=== PATIENT | male | born 1950 | race Caucasian/White ===

== ENCOUNTER 2017-04-07 22:22 | Emergency (ER) | payer MEDICARE, OTHER ==
[~2017-04-07] VITALS: Ht 185.4 cm; Wt 120.2 kg
[~2017-04-07 22:22] MED LIST: AMITRIPTYLINE100 M1 PO; AMITRIPTYLINE100 MG PO; ASPIRIN EC325 M1 PO; BACTRIM DS 8001 TAB PO; BYSTOLIC10 MG PO; FLEXERIL10 MG PO; IBU-8800 MG PO; LISINOPRIL 10MG10 MG PO; LISINOPRIL40 MG PO; LOPRESSOR 25MG.25 M1 PO; MEDROL 4MG. DOSE4 MG PO; NEURONTIN 300M300 MG PO; OMEPRAZOLE20 MG PO; PLAVIX 75MG TAB75 MG PO; PRILOSEC OTC20 MG PO; VICODIN 5/500 T1 TAB PO
--- NOTE | 2017-04-07 23:06 | Emergency Room Report ---
History of Present Illness Time Seen by [id number] Presenting Problem in Triage Pt arrived:Ambulance Stretcher Presenting Problem:HIGH BLOOD PRESSURE, RIGHT SIDED NUMBNESS, H/O CVA WHICH HAD TPA. DENIES ANY PAIN Onset of symptoms date/time:04/07/17 or onset unknown for: Treatment Prior to Arrival: CHANNEL MANAGER Provided by: Sepsis Risk Assessment: Temp: 98.5 B/P: 199/108 MAP: 138 Pulse: 90 Resp: 22 Recent fever? N Clinical Suspician of Infection? N Mental Status: 1 - Regular (Normal Baseline) Sepsis Risk:Possible Sepsis Risk Have you (or family members/close friends) recently traveled outside the [place]? N If Yes, where/when: Have you had exposure to infectious disease within the past month? N TB? Other? Specify: Source patient, RN notes reviewed, family, old records Exam Limitations no limitations Comment wm with parasthesia rt upper ext and rt lower ext anf face today at 1500 and he has htn and prev cva 2009 requiring tpa - he has no speech and no motor loss and no visual sx - no fever or rash and no trauma Cardiac Chest Pain Chest pain indicative of cardiac No Timing/Duration this afternoon Severity moderate ALLERGIES Coded Allergies: No Known Allergies (06/29/16) Home Medications Reported Medications Aspirin (Aspirin Ec) 325 MG PO DAILY Gabapentin (Neurontin 300MG) 900 MG PO QHS Omeprazole (Omeprazole 20MG) 20 MG PO DAILY Lisinopril (Lisinopril 40MG) 40 MG PO BID #60 Metoprolol Tartrate (Lopressor 25MG Tab (1/2 Of 50 MG)) 50 MG PO DAILY #30 AMITRIPTYLINE HCL (Amitriptyline Hcl) 200 MG PO NIGHTLY #60 History Medical History General CAD? No Angina: No DE: No Hypertension? Yes Hyperlipidemia? No CHF? No DVT? No PE? No COPD? Yes Asthma? No Anemia? No GERD? No Gastric ulcers? No GI Bleed? No Hernia? No Thyroid Problems? No Hypothyroidism? No CVA? Yes Seizures? No Diabetes? No Renal Insuffiency? No End Stage Renal Disease? No UTI? No Stones? No BPH? No GB Disease: No Nephritic Syndrome? No Asplenia? No Hepatitis? No Sickle Cell Disease? No Arthritis? No Migraines? No Cataracts? No Glaucoma? No MRSA? No HIV? No TB? No Anxiety? No Depression? No Cancer? No Immunization Hx DT/Tetanus 03/02/11 Surgical Hx Previous Surgery?Y BACK SURGERY X 2 Social History Smoking Hx Smoker: Current Every Day Smoker Tobacco: Yes Type Cigarettes Packs/day < 1 Pack Alcohol Alcohol: No Drugs none Review of Systems All Other Systems Reviewed and Negative Constitutional denies fever Eyes denies drainage ENT denies: ear discharge, epistaxis, throat pain. Respiratory denies cough, denies shortness of breath, denies wheezing Cardiovascular denies chest pain, denies palpitations, denies syncope Gastrointestinal denies abdominal pain, denies nausea, denies vomiting Genitourinary denies: dysuria, frequency, hesitancy, hematuria. Musculoskeletal denies back pain, denies joint pain, denies joint swelling, denies neck pain Skin denies rash Psychiatric/Neurological see HPI, denies headache, paresthesia, denies seizure, weakness Physical Exam Vital Signs Vital Signs Date Time Temp Pulse Resp B/P Pulse O2 O2 Flow FiO2 Ox Delivery Rate 04/07 2309 89 20 187/133 95 04/07 2235 98.5 90 22 199/108 97 - WBC >12,000 or <4,000 or 10% bands? 2 or more SIRS Criteria Met? B/P:187/133 MAP:138 Creatinine >2.0? UA output<0.5ml/kg/hr for 2 hrs? Platelet count >100,000? Lactate >2.0mmol/1? INR >1.2 or PTT > than 60 sec? Evidence of Organ Dysfunction? Provider documented clinical suspician of infection? N Sepsis Criteria Count: 2 Sepsis Risk: Possible Sepsis Risk General Appearance no apparent distress Eye Exam - bilateral eye PERRL, bilateral eye EOMI Ear, Nose, Throat normal ENT inspection Neck supple Respiratory Status No: respiratory distress. Lung Sounds bilateral: lungs clear. Cardiovascular regular rate/rhythm, systolic murmur, no bruit Peripheral Pulses Pulses normal Yes Gastrointestinal soft Extremities normal inspection Strength 4 Upper Ext (L), 4 Upper Ext (R), 4 Lower Ext (L), 4 Lower Ext (R) Neurologic alert, licensed occupational therapist II-XII nml as tested, sensory deficit Glascow Coma Scale Glascow Coma Scale Response Value EYE response: 4 Spontaneously 4 MOTOR response: 6 OBEYS 6 VERBAL response: 5 Oriented & Converses 5 Total 15 Reflexes Reflexes normal No Mental status normal mood/affect Skin intact Stroke Score/Tx Stroke Evaluation Initial symptoms indicative of possible stroke? Yes NIH STROKE SCORE NIH STROKE SCORE Response Value 1a.Level of Consciousness ALERT 0 1b.LOC Questions ANSWERS BOTH CORRECTLY 0 1c.LOC Commands OBEYS BOTH CORRECTLY 0 2 .Best Gaze NORMAL 0 3 .Visual NO VISUAL LOSS 0 4 .Facial Palsy NORMAL 0 5a.Motor Arm Left NO DRIFT 0 5b.Motor Arm Right NO DRIFT 0 6a.Motor Leg Left NO DRIFT 0 6b.Motor Leg Right NO DRIFT 0 7 .Limb Ataxia ABSENT 0 8 .Sensory PARTIAL LOSS 1 9 .Best Language NO APHASIA 0 10.Dysarthria NORMAL ARTICULATION 0 ED.NIH11 NO NEGLECT 0 Total 1 Treatment Consideration t-PA ordered? No Exit section? Yes Medical Decision Making LABS/Meds/Orders Pt receiving controlled substance in ED? No Results/Orders Laboratory Tests 04/07/170: Creatine Kinase Pending, CK-MB (CK-2) Rel Index Pending, CK and CKMB Interp Pending, Troponin I Pending 04/07/170: Sodium 140, Potassium 4.3, Chloride 104, Carbon Dioxide 30, BUN 22 H, Creatinine 1.2, Estimated Creat Clear 104, Estimated GFR (MDRD) 61, Glucose 85, Calcium 9.0, Total Bilirubin 0.3, AST 26, ALT 34, Alkaline Phosphatase 86, Total Protein 8.0, Albumin 3.9, Globulin 4.1 H, Albumin/Globulin Ratio 1.0 L, PT 10.7, INR 0.99, APTT 26.7, WBC 7.4, RBC 5.05, Hgb 15.9, Hct 48.3, MCV 95.5, RDW 13.5, Plt Count 210, MPV 7.9, Gran % 49.8, Gran # 3.7, Lymphocytes % 39.8, Monocytes % 7.2, Eosinophils % 2.2, Basophils % 1.0, Lymphocytes # 2.9, Monocytes # 0.5, Eosinophils # 0.2, Basophils # 0.1, PUBS MCHC 32.9, MCH 31.5 H Current Medication Orders Sig/Ana Start time Last Medication Dose Route Stop Time Status Admin Sodium Chloride 10 ML PRN PRN 04/07 2245 AC IV 04/08 2244 Orders Procedure Date/time Status DIET-NOTHING BY MOUTH 04/08 B Active PARTIAL THROMBOPLASTIN TIME 04/07 2305 Complete PROTHROMBIN TIME 04/07 2305 Complete CARDIAC ENZYMES 04/[address] HEAD W/O CONTRAST 04/07 2304 Active ELECTROCARDIOGRAM REQUEST 04/[address] HEAD REQ 04/07 2244 Active IV SALINE LOCK 04/07 2244 Active CBC WITH AUTO DIFF 04/07 2244 Complete CHEM 12 PROFILE 04/07 2244 Complete CM/EKG CM/senior payroll manager Rhythm Normal Sinus Rhythm EKG no evid. of ischemic chgs XRAY/CT/US XRAY/CT/US CT head CT interpretation by discussed w/radiologist Time results known: 2353 CT Results normal/NAD Departure Departure Time of Disposition 2347 Disposition DC/XFER from ER to [facility] Clinical Impression Primary Impression: CVA (cerebral vascular accident) Qualifiers: CVA mechanism: unspecified Qualified Code: I63.9 - Cerebral infarction, unspecified Secondary Impressions: HTN (hypertension) Qualifiers: Hypertension type: essential hypertension Qualified Code: I10 - Essential (primary) hypertension Condition STABLE Additional Instructions discussed with law team dr chapa Discharge Counseling Counseled pt/family regarding diagnosis, test results, follow up needs ED Critical Care Critical Care Yes Time spent 75-104 min Vital system(s) involved: Central Nervous System (cva) I was present at bedside for Coordinating pt's care, Interpreting EKGs/Strips , Reviewing lab results, Discussing pt condition, For re-examinations, Examining radiographs at 2354
[2017-04-07 23:24] LABS: HEMOGLOBIN 15.9 g/dL (14.1-18.0); LYMPH # 2.9 K/mm3 (0.7-4.5); LYMPH % 39.8 % (10-50)
[2017-04-08 01:21] VITALS: BP 177/104
--- NOTE | 2017-04-08 07:24 | RADIOLOGY REPORT PS360 ---
CT HEAD W/O CONTRAST HISTORY: RT SIDE NUMBNESS ORDERING PHYSICIAN: Frida Silva MD PATIENT AGE: 66 years COMPARISON: 06/29/2016 TECHNIQUE: Axial images obtained without contrast. Brain and bone windows reviewed. FINDINGS: No midline shift, mass effect, intracranial hemorrhage, hydrocephalus, or extra-axial fluid collection is evident. Nonspecific hypoattenuation noted within the white matter consistent with ischemic gliotic change from microvascular disease. Remote lacunar infarction is present in the left basal ganglia. The calvarium has an unremarkable appearance. No mastoid effusion. The visualized paranasal sinuses are unremarkable. Nonspecific subcutaneous increased density left zygomatic area IMPRESSION: 1. No acute intracranial findings. 2. White matter hypoattenuation consistent with microangiopathic gliotic changes 3. There is no evidence of intracranial hemorrhage, focal mass, or acute territorial infarction. A negative CT does not exclude an acute CVA. A follow-up head CT or MRI is recommended if neurological symptoms persist
== END 2017-04-08 00:50 | disposition short-term general hospital (02) ==
LOC: ER 22:22
PROVIDERS: Emergency Medicine
DX: I63.9 Cerebral infarction, unspecified (principal); I10 Essential (primary) hypertension; R29.701 NIHSS score 1; Z79.899 Other long term (current) drug therapy; Z72.0 Tobacco use

== ENCOUNTER 2017-06-05 17:04 | Emergency (ER) | payer MEDICARE, OTHER ==
[~2017-06-05] VITALS: Ht 185.4 cm; Wt 124.3 kg
--- OUTSIDE RECORDS SUMMARY | 2017-06-05 17:27 | External Medical Summary Rpt | CCD ---
Author Author , JEY KHANNA Address Unknown Phone [email or web address] Care Team Providers Care [employer] Location Manager Name Role Phone Fausto Romero MD, Unavailable Unavailable Fausto Silva MD, Unavailable Unavailable Frida Silva MD Purpose Continuity of Care Document - 01-29-2013 through 2016 Problems Code Diagnosis DOS Provider Status 401.9 401[facility]9 [facility] 496 496 [facility] 06-14-2013 [place] AIRWAY [facility] OBSTRUCT Hospital NEC 553.3 553.3 06-14-2013 [place] DIAPHRAGMAT [facility] IC HERNIA Hospital 558.9 558.9 06-14-2013 [place] NONINF [facility] GASTROENTER Hospital IT NEC V58.69 V58.69 OTH 06-14-2013 [place] BROWNLT,CURR [facility] ENT USE Hospital 682.4 682.4 01-29-2013 [place] CELLULITIS [facility] OF HAND Hospital 882.1 882.1 OPN 01-29-2013 [place] WOUND [facility] HAND-COMPLI Hospital CAT E920.8 E920.8 01-29-2013 [place] ACC-CUTTING [facility] INSTRUM Hospital NEC V12.54 V12.54 01-29-2013 [place] PERSONAL HX [facility] TIA,& Hospital CEREBRAL INFARCTION W/OUT RES DEFICITS V58.66 V58.66 01-29-2013 [place] LONG-TERM [facility] (CURRENT) Hospital USE OF ASPIRIN V90.10 V90.10 01-29-2013 [facility] METAL [facility] FRAGMENTS, UNSPECIFIED I10 ESSENTIAL (PRIMARY) HYPERTENSIO N I63.9 CEREBRAL INFARCTION, UNSPECIFIED R51 HEADACHE Allergies, Adverse Reactions, Alerts Type Allergy to substance Adverse Reaction to Substance Substance Reaction Severity NO KNOWN ALLERGIES Unknown Unknown Medications Na ND Rx Da Fi Fi Am Da Di Ph RX Ph St me C No te ll ll ou ys ag ar # ys at rm s nt no ma ic us Or Da si cy ia de te s n re d IS 00 11 0 No OV 27 -0 UE 01 4- Lo -3 31 20 ng 70 65 13 er 2 76 Ac % ti IN ve FU S MIN TT LE RA 63 11 0 No D- 80 -0 SA 70 4- Lo LI 10 20 ng NE 07 13 er 5A FL Ac US ti H ve 10 ML SY RI NG E SO 00 11 0 No DI 40 -0 UM 97 2- Lo 98 20 ng CH 30 13 er LO 9 RI Ac DE ti ve 0. 9% SO MILADY TI ON Sa 63 11 0 No li 80 -0 ne 70 2- Lo 10 20 ng Fl 07 13 er us 5 h Ac 10 ti ML ve Sy ri ng e GA [address] 27 -0 RO 00 2- Lo GR 44 20 ng AF 53 13 er IN 5 Ac 66 ti -1 ve 0 SO MILADY TI ON Mo 00 11 0 No rp 40 -0 hi 91 2- Lo ne 26 20 ng 06 13 er 8M 9 G/ Ac Ml ti ve Sy ri ng e ON 00 11 0 No DA 64 -0 NS 16 2- Lo ET 08 20 ng RO 02 13 er N 5 HC Ac L ti 4 ve MG /2 ML AL Sa 63 11 0 No li 80 -0 ne 70 2- Lo 10 20 ng Fl 07 13 er us 5 h Ac 10 ti ML ve Sy ri ng e Mo 00 11 0 No rp 40 -0 hi 91 2- Lo ne 26 20 ng 06 13 er 8M 9 G/ Ac Ml ti ve Sy ri ng e Vital Signs 06-14-2013 20:42 Name Value Interpretat Reference Comment ion Range Body 97.9 [degF] Temperature BP 105 mm[Hg] Diastolic BP Systolic 186 mm[Hg] Heart 103 /min Rate/Pulse O2% 97 % Respiratory 20 /min Rate 06-14-2013 19:36 Name Value Interpretat Reference Comment ion Range Body 98.6 [degF] Temperature 06-14-2013 18:19 Name Value Interpretat Reference Comment ion Range BP 113 mm[Hg] Diastolic BP Systolic 194 mm[Hg] Heart 65 /min Rate/Pulse O2% 93 % Respiratory 20 /min Rate 01-29-2013 14:51 Name Value Interpretat Reference Comment ion Range Body 98.2 [degF] Temperature BP 57 mm[Hg] Diastolic BP Systolic 137 mm[Hg] Heart 68 /min Rate/Pulse O2% 96 % Respiratory 20 /min Rate 01-29-2013 14:47 Name Value Interpretat Reference Comment ion Range Body 98.2 [degF] Temperature BP 57 mm[Hg] Diastolic BP Systolic 137 mm[Hg] Heart 68 /min Rate/Pulse O2% 96 % Respiratory 20 /min Rate Results Labs Lab Lab Date Result Refere Interp Status Commen Order Detail nces retati t Range on Hgb A1c MFr Bld (04-08-2017 06:18) Hgb A1c 6.0 % 4.7-6.0 complet MFr 017 ed Bld 06:18 TSH SerPl DL<=0.005 mIU/L-aCnc (04-08-2017 06:18) TSH 4.13 0.4-4.2 complet SerPl 017 uIU/mL ed DL<=0.0 06:18 05 mIU/L-a Cnc TSH SerPl DL<=0.005 mIU/L-aCnc (04-08-2017 02:46) TSH 3.47 0.4-4.2 complet SerPl 017 uIU/mL ed DL<=0.0 02:46 05 mIU/L-a Cnc Hgb A1c MFr Bld (04-08-2017 02:46) Hgb A1c 6.1 % 4.7-6.0 complet MFr 017 ed Bld 02:46 LDL (12-03-2013 10:59) Comment: FAX RESULTS [phone] LDL 125.8 0.0-100 Above complet 014 .0 high ed 10:59 normal Comment: VERY HIGH - > 189 MG/DL Comment: HIGH - 160-189 MG/DL Comment: BORDERLINE HIGH - 130-159 MG/DL Comment: NEAR OPTIMAL / ABOVE OPTIMAL - < 130 MG/DL Comment: OPTIMAL - < 100 MG/DL GLOMELULAR JEFF. RATE,CALC. (12-03-2013 10:59) Comment: FAX RESULTS [phone] GLOMELU 80.5 60.0-13 complet LAR 014 ml/min 0.0 ed JEFF. 10:59 RATE,CA LC. Comment: 60-69 85 ML/MIN Comment: 50-59 93 ML/MIN Comment: 40-49 99 ML/MIN Comment: 30-39 107 ML/MIN Comment: 20-39 116 ML/MIN Comment: AGE(YEARS) AVERAGE EGFR Comment: AVERAGE EGFR FOLLOWS: Comment: <15 ML/MIN/1.73M2 = KIDNEY FAILURE Comment: <60 ML/MIN/1.73M2 = CHRONIC KIDNEY DISEASE Comment: >60 ML/MIN/1.73M2 = NORMAL Comment: PATIENTS >70 YEARS OF AGE,OR PATIENTS WITH EXTREME BODY SIZE. Comment: THIS CALCULATION IS NOT ACCURATE FOR PEDIATRIC PATIENTS, Comment: BASED ON AN AVERAGE BODY SURFACE AREA OF 1.73M2. Comment: THE eGFR IS AN ESTIMATED GLOMELULAR FILTRATION RATE LIPID PROFILE (12-03-2013 10:59) Comment: FAX RESULTS [phone] HDL 45 32-60 complet 014 MG/DL ed 10:59 CHOLEST 12-03-2 183 <200 complet ANDREW 014 MG/DL ed 10:59 TRIGLYC 61 30-200 complet ERIDE 014 MG/DL ed 10:59 Comment: HIGH >200 MG/DL Comment: BORDER HIGH 150 - 199 MG/DL Comment: NORMAL <150 MG/DL FREE THYROXINE (12-03-2013 10:59) Comment: FAX RESULTS [phone] FREE 12-03-2 0.82 0.76-1. complet THYROXI 014 ng/dl 46 ed NE 10:59 TSH (12-03-2013 10:59) Comment: FAX RESULTS [phone] TSH 12-03- 1.140 0.358-3 complet 014 uIU/ML .740 ed 10:59 COMP. METABOLIC PANEL (CHEM 12) (12-03-2013 10:59) Comment: FAX RESULTS [phone] GLOBULI 12-03-2 4.1 2.4-4.8 complet N 014 G/DL ed 10:59 ALBUMIN 23-2 3.8 3.4-5.0 complet 014 G/DL ed 10:59 PROTEIN 23-2 7.9 6.4-8.4 complet , TOTAL 014 G/DL ed 10:59 CREATIN 23-2 1.0 0.6-1.3 complet INE 014 MG/DL ed 10:59 CO2 04-23-2 28 21-32 complet 014 mmol/L ed 10:59 CHLORID 2 108 98-107 Above complet E 014 mmol/l high ed 10:59 normal POTASSI 2 4.0 3.6-5.2 complet UM 014 mmol/l ed 10:59 SODIUM 2 140 133-144 complet 014 mmol/L ed 10:59 BUN 2 26 7-18 Above complet 014 MG/DL high ed 10:59 normal GLUCOSE 81 70-110 complet 014 MG/DL ed 10:59 BILIRUB 2 0.50 0.00-1. complet IN, 014 MG/DL 00 ed TOTAL 10:59 ALT 65 U/L 12-78 complet 014 ed 10:59 AST 39 U/L 15-37 Above complet 014 high ed 10:59 normal ALKALIN 82 U/L 45-117 complet E 014 ed PHOSPHA 10:59 TASE CALCIUM 8.9 8.5-10. complet 014 MG/DL 1 ed 10:59 A/G 0.9 0.6-1.6 complet RATIO 014 ed 10:59 PSA (SCREENING) (12-03-2013 10:59) Comment: FAX RESULTS [phone] PSA 0.5 0.0-4.0 complet (SCREEN 014 NG/ML ed ING) 10:59 Comment: EVALUATIONS AND RESULTS FROM ALTERNATE PROCEDURES. Comment: SHOULD BE USED IN CONJUCTION WITH INFORMATION FROM CLINICAL Comment: FOR PATIENTS WITH PROSTATE CANCER. THEREFORE, PSA LEVELS Comment: DISEASE MAY HAVE ABNORMAL SERUM LEVELS IN THE RANGE OBSERVED Comment: NORMAL RANGE. CONVERSLY, PATIENTS WITH NON-MALIGNANT PROSTATE Comment: WITH PROSTATE CANCER MAY HAVE SERUM LEVELS OF PSA WITHIN Comment: FOR THE EARLY DIAGNOSIS OF PROSTATE CANCER. UNTREATED PATIENTS Comment: THE PSA ASSAY SHOULD NOT BE USED THE ONLY SCREENING TOOL CBC/NO DIFF+ PLATELET (12-03-2013 10:59) Comment: FAX RESULTS [id number] MPV 8.0 fl 6.1-10. complet 014 1 ed 10:59 PLATELE 229 134-412 complet T 014 K/UL ed 10:59 RDW 04-23-2 14.5 % 10.1-16 complet 014 .5 ed 10:59 MCHC 23-2 33.5 32.6-35 complet 014 g/dl .4 ed 10:59 MCH 04-23-2 31.0 pg 27.6-32 complet 014 .7 ed 10:59 MCV 04-23-2 92.7 fl 80.8-10 complet 014 1.2 ed 10:59 HCT -23-2 45.4 % 32.0-51 complet 014 .6 ed 10:59 HGB 23-2 15.2 11.0-17 complet 014 gm/dl .8 ed 10:59 RBC -23-2 4.900 3.500-6 complet 014 M/ul .100 ed 10:59 WBC -23-2 5.3 3.5-13. complet 014 K/UL 0 ed 10:59 URINALYSIS/COMPLETE (06-14-2013 17:40) URINE --2 YELLOW YELLOW complet COLOR 013 ed 17:40 URINE --2 CLEAR CLEAR complet APPEARA 013 ed NCE 17:40 URINE --2 NEGATIV NEG complet GLUCOSE 013 E ed - 17:40 DIPSTIC K URINE 06-14-2 NEGATIV NEG complet BILIRUB 013 E ed IN - 17:40 DIPSTIC K URINE 06-14-2 NEGATIV NEG complet KETONE 013 E mg/dL ed 17:40 URINE --2 1.015 1.005-1 complet SPECIFI 013 UNK .030 ed C 17:40 GRAVITY URINE --2 NEGATIV NEG complet BLOOD 013 E ed 17:40 URINE --2 6.0 UNK 5.0-8.5 complet PH 013 ed 17:40 URINE --2 NEGATIV NEG complet PROTEIN 013 E mg/dL ed - 17:40 DIPSTIC K URINE --2 0.2 NEG complet UROBILI 013 E.U./dL ed NOGEN - 17:40 DIPSTIC K URINE --2 NEGATIV NEG complet NITRATE 013 E ed - 17:40 DIPSTIC K URINE --2 NEGATIV NEG complet LEUK 013 E ed ESTERAS 17:40 E URINE --2 OCC 0 complet RBC 013 rbc/hpf ed 17:40 URINE 11-02-2 OCC O complet WBC 013 wbc/hpf ed 17:40 URINE TRACE O complet BACTERI 013 ed A 17:40 URINE 1+ NONE complet MUCUS 013 ed 17:40 COMPREHENSIVE METABOLIC PANEL (06-14-2013 17:30) Glucose 112 74-106 complet 013 mg/dL ed Bld-mCn 17:30 c BUN 21 7-18 complet Bld-mCn 013 mg/dL ed c 17:30 Creat 2 1.0 0.8-1.3 complet SerPl-m 013 mg/dL ed Cnc 17:30 ESTIMAT 134 50-200 complet ED 013 ML/MIN ed CREATIN 17:30 INE CLEARAN CE GFR 76 Greater complet (ESTIMA 013 ML/MIN than ed SHALONDA) 17:30 60 Sodium 137 136-145 complet SerPl-s 013 mmoL/L ed Cnc 17:30 Potassi 4.2 3.5-5.1 complet um 013 mmoL/L ed SerPl-s 17:30 Cnc Chlorid 103 98-107 complet e 013 mmoL/L ed SerPl-s 17:30 Cnc CO2 22 21.0-32 complet SerPl-s 013 mmoL/L .0 ed Cnc 17:30 Calcium 06-14-2 8.7 8.5-10. complet 013 mg/dL 1 ed SerPl-m 17:30 Cnc Prot 8.0 6.4-8.2 complet SerPl-m 013 gm/dL ed Cnc 17:30 Albumin 06-14-2 3.9 3.4-5.0 complet 013 gm/dL ed SerPl-m 17:30 Cnc Globuli 2 4.1 1.3-3.2 complet n 013 gm/dL ed Ser-mCn 17:30 c Albumin 2 1.0 UNK 1.1-1.8 complet /Glob 013 ed SerPl-m 17:30 Rto Bilirub 0.5 0.2-1.0 complet 013 mg/dL ed SerPl-m 17:30 Cnc AST 27 U/L 15-37 complet SerPl-c 013 ed Cnc 17:30 ALT --2 58 U/L 30-65 complet SerPl-c 013 ed Cnc 17:30 ALP 06-14-2 103 U/L 50-136 complet SerPl-c 013 ed Cnc 17:30 Amylase SerPl-cCnc (06-14-2013 17:30) Amylase 06-14-2 18 U/L 25-115 complet 013 ed SerPl-c 17:30 Cnc LIPASE (06-14-2013 17:30) LIPASE 06-14-2 43 U/L 73-393 complet 013 ed 17:30 CBC with AUTO DIFF (06-14-2013 17:30) WBC # 11--2 18.5 4.8-10. complet Bld 013 K/MM3 8 ed Auto 17:30 RBC # 11-2 5.25 4.6-6.2 complet Bld 013 M/mm3 ed Auto 17:30 Hgb 06-14-2 16.0 14.1-18 complet Bld-mCn 013 g/dL .0 ed c 17:30 Hct Fr 06-14-2 48.3 % 42.0-52 complet Bld 013 .0 ed 17:30 MCV RBC 06-14-2 92.0 fl 82.2-97 complet 013 .8 ed 17:30 MCH RBC 06-14-2 30.4 pg 27-31.2 complet Qn 013 ed Auto 17:30 MEAN 06-14-2 33.0 31.8-35 complet CORPUSC 013 g/dl .4 ed ULAR 17:30 HGB CONC RDW RBC 06-14-2 14.3 % 11.5-17 complet Auto 013 .5 ed 17:30 Platele --2 221 142-424 complet t Bld 013 K/mm3 ed Ql 17:30 Manual MEAN 06-14-2 8.1 fl 7.4-10. complet PLATELE 013 4 ed T 17:30 VOLUME Granulo 06-14-2 81.6 % 37.0-80 complet cytes 013 .0 ed Fr Bld 17:30 Auto LYMPH % --2 11.7 % 10-50 complet 013 ed 17:30 Monocyt --2 6.1 % 1.7-9.3 complet es Fr 013 ed Bld 17:30 Auto Eosinop 11-02-2 0.5 % 0.1-12. complet hil Fr 013 0 ed Bld 17:30 Auto Basophi 0.3 % 0.1-2.0 complet ls Fr 013 ed Bld 17:30 Auto Granulo 15.1 1.3-8.0 complet cytes # 013 K/mm3 ed Bld 17:30 Auto Lymphoc 2.2 0.7-4.5 complet ytes Fr 013 K/mm3 ed Bld 17:30 Auto Monocyt 1.1 0.1-1.0 complet es # 013 K/mm3 ed Bld 17:30 Auto Eosinop 0.1 0.0-0.4 complet hil # 013 K/mm3 ed Bld 17:30 Auto Basophi 0.1 0-0.2 complet ls # 013 K/MM3 ed Bld 17:30 Auto Encounters Encounter Start End Date Code Location Performer Type Date Emergency MANASA Silva MD (ER) 3 17:37 3 20:49 [facility] Emergency MANASA Romero (ER) 3 13:44 3 14:53 [facility]
--- OUTSIDE RECORDS SUMMARY | 2017-06-05 17:27 | External Medical Summary Rpt | CCD ---
Author Author , JEY KHANNA Address Unknown Phone [email or web address] Care Team Providers Care Office Services Representative Name Role Phone Fausto Romero MD, Unavailable Unavailable Fausto Silva MD, Unavailable Unavailable Frida Silva MD Purpose Continuity of Care Document - 01-29-2013 through 2016 Problems Code Diagnosis DOS Provider Status 401.9 401.9 [facility] 496 496 [facility] 06-14-2013 [place] AIRWAY [facility] OBSTRUCT Hospital NEC 553.3 553.3 06-14-2013 [place] DIAPHRAGMAT [facility] IC HERNIA Hospital 558.9 558.9 06-14-2013 [place] NONINF [facility] GASTROENTER Hospital IT NEC V58.69 V58.69 OTH 06-14-2013 [place] BROWNLT,CURR [facility] ENT USE Hospital 682.4 682.4 01-29-2013 [place] CELLULITIS [facility] OF HAND Hospital 882.1 882.1 OPN 01-29-2013 [place] WOUND [facility] HAND-COMPLI Hospital CAT E920.8 E920.8 01-29-2013 [place] ACC-CUTTING [facility] INSTRUM Hospital NEC V12.54 V12.54 01-29-2013 [place] PERSONAL HX [facility] TIA,& Hospital CEREBRAL INFARCTION W/OUT RES DEFICITS V58.66 V58.66 01-29-2013 [place] LONG-TERM [facility] (CURRENT) Hospital USE OF ASPIRIN V90.10 V90.10 01-29-2013 [facility] METAL [facility] FRAGMENTS, UNSPECIFIED I10 ESSENTIAL (PRIMARY) HYPERTENSIO N [...] PSA (SCREENING) (12-03-2013 10:59) Comment: FAX RESULTS [phone] PSA 0.5 0.0-4.0 complet (SCREEN 014 NG/ML [...] DIFF+ PLATELET (12-03-2013 10:59) Comment: FAX RESULTS [id number] MPV 8.0 fl 6.1-10. complet 014 1 [...] Silva MD (ER) 3 17:37 3 20:49 [facility] Emergency MANASA Romero (ER) 3 13:44 3 14:53 [facility]
--- OUTSIDE RECORDS SUMMARY | 2017-06-05 17:28 | External Medical Summary Rpt | CCD ---
Demographics Preferred Language Yi Marital Status Unknown Jewish Affiliation Unknown Race Unknown Ethnic Group Unknown Author Author JEY Address Unknown Phone [email or web address] Purpose Continuity of Care Document - through 2016
--- OUTSIDE RECORDS SUMMARY | 2017-06-05 17:28 | External Medical Summary Rpt ---
Author Author [facility] Mason, [employer] Organization [employer] Address Unknown Phone Unavailable Results Cardiac enzymes Observa Value Referen Units Interpr Notes Date tion ce etation Range Creatine 0 - 4.0 U/L Normal No Apr 07 kinase.MB informati 2017 /Creatine on in 10:50 PM source kinase.to data ena [Ratio] in Serum or Plasma Creatine 0.0 - 3.6 ng/mL High No Apr 07 kinase.MB informati 2016 on in 10:50 PM [Mass/vol source ume] in data Serum or Plasma Creatine 39 - 308 U/L High No Apr 07 kinase informati 2016 [Enzymati on in 10:50 PM c source activity/ data volume] in Serum or Plasma Troponin 0.00 - ng/mL Normal No Apr 07 I.cardiac 0.06 informati 2017 on in 10:50 PM [Mass/vol source ume] in data Serum or Plasma Comprehensive metabolic 2000 panel in Serum or Plasma Observa Value Referen Units Interpr Notes Date tion ce etation Range Albumin/G 1.1 - 1.8 No Low No Apr 07 lobulin informati informati 2016 [Mass on in on in 10:50 PM ratio] in source source Serum or data data Plasma Albumin 3.4 - 5.0 gm/dL Normal No Apr 07 [Mass/vol informati 2016 ume] in on in 10:50 PM Serum or source Plasma data Alkaline 46 - 116 U/L Normal No Apr 07 phosphata informati 2016 se on in 10:50 PM [Enzymati source c data activity/ volume] in Serum or Plasma Bilirubin 0.2 - 1.0 mg/dL Normal No Apr 07 .total informati 2016 [Mass/vol on in 10:50 PM ume] in source Serum or data Plasma Urea 7 - 18 mg/dL High No Apr 07 nitrogen informati 2016 [Mass/vol on in 10:50 PM ume] in source Serum or data Plasma Calcium 8.5 - mg/dL Normal No Apr 07 [Mass/vol 10.1 informati 2016 ume] in on in 10:50 PM Serum or source Plasma data Chloride 98 - 107 mmoL/L Normal No Apr 07 [Moles/vo informati 2016 lume] in on in 10:50 PM Serum or source Plasma data Carbon 21.0 - mmoL/L Normal No Apr 07 dioxide, 32.0 informati 2016 total on in 10:50 PM [Moles/vo source lume] in data Serum or Plasma Creatinin 0.70 - mg/dL Normal No Apr 07 e 1.30 inform2016 [Mass/vol on in 10:50 PM ume] in source Serum or data Plasma Creatinin 50 - 200 ML/MIN Normal No Apr 07 e renal informati 2017 clearance on in 10:50 PM source predicted data by Cockcroft -Gault formula Estimated >60 ML/MIN No REFERENCE Apr 07 informati RANGE: 2017 glomerula on in >60 10:50 PM r source ML/MIN/1. filtratio data 73 SQUARE n rate METERSIf (GF this patient is -A merican, then multiply theresult by 1.210. Globulin 1.3 - 3.2 gm/dL High No Apr 07 [Mass/vol informati 2016 ume] in on in 10:50 PM Serum source data Glucose 74 - 106 mg/dL Normal No Apr 07 [Mass/vol informati 2016 ume] in on in 10:50 PM Serum or source Plasma data Potassium 3.5 - 5.1 mmoL/L Normal No Apr 072016 [Moles/vo on in 10:50 PM lume] in source Serum or data Plasma Sodium 136 - 145 mmoL/L Normal No Apr 07 [Moles/vo informati 2016 lume] in on in 10:50 PM Serum or source Plasma data Aspartate 15 - 37 U/L Normal No Apr 072016 aminotran on in 10:50 PM sferase source [Enzymati data c activity/ volume] in Serum or Plasma Alanine 12 - 78 U/L Normal No Apr 07 aminotran 2016 sferase on in 10:50 PM [Enzymati source c data activity/ volume] in Serum or Plasma Protein 6.4 - 8.2 gm/dL Normal No Apr 07 [Mass/vol informati 2016 ume] in on in 10:50 PM Serum or source Plasma data CBC W Auto Differential panel in Blood Observa Value Referen Units Interpr Notes Date tion ce etation Range Basophils 0 - 0.2 K/MM3 Normal No Apr 072016 [#/volume on in 10:50 PM ] in source Blood by data Automated count Basophils 0.1 - 2.0 % Normal No Apr 07 /100 inform2016 leukocyte on in 10:50 PM s in source Blood by data Automated count Eosinophi 0.0 - 0.4 K/mm3 Normal No Apr 07 ls 2016 [#/volume on in 10:50 PM ] in source Blood by data Automated count Eosinophi 0.1 - % Normal No Apr 07 ls/100 12.0 inform2016 leukocyte on in 10:50 PM s in source Blood by data Automated count Granulocy 1.3 - 8.0 K/mm3 Normal No Apr 07 angel 2016 [#/volume on in 10:50 PM ] in source Blood by data Automated count Granulocy 37.0 - % Normal No Apr 07 angel/100 80.0 2016 leukocyte on in 10:50 PM s in source Blood by data Automated count Hematocri 42.0 - % Normal No Apr 07 t [Volume 52.0 2016 on in 10:50 PM Fraction] source of Blood data Hemoglobi 14.1 - g/dL Normal No Apr 07 n 18.0 2016 [Mass/vol on in 10:50 PM ume] in source Blood data Lymphocyt 0.7 - 4.5 K/mm3 Normal No Apr 07 es 2016 [#/volume on in 10:50 PM ] in source Unspecifi data ed specimen by Automated count Lymphocyt 10 - 50 % Normal No Apr 07 es 2016 [#/volume on in 10:50 PM ] in source Unspecifi data ed specimen by Automated count Erythrocy 27 - 31.2 pg High No Apr 07 te mean 2016 corpuscul on in 10:50 PM ar source hemoglobi data n [Entitic mass] Erythrocy 31.8 - g/dl Normal No Apr 07 te mean 35.4 2016 corpuscul on in 10:50 PM ar source hemoglobi data n concentra tion [Mass/vol ume] by Automated count Erythrocy 82.2 - fl Normal No Apr 07 te mean 97.8 2016 corpuscul on in 10:50 PM ar volume source [Entitic data volume] by Automated count Monocytes 0.1 - 1.0 K/mm3 Normal No Apr 072016 [#/volume on in 10:50 PM ] in source Blood by data Automated count Monocytes 1.7 - 9.3 % Normal No Apr 07 /100 2016 leukocyte on in 10:50 PM s in source Blood by data Automated count Platelet 7.4 - fl Normal No Apr 07 mean 10.4 2016 volume on in 10:50 PM [Entitic source volume] data in Blood by Automated count Platelets 142 - 424 K/mm3 Normal No Apr 072016 [#/volume on in 10:50 PM ] in source Blood data Erythrocy 4.6 - 6.2 M/mm3 Normal No Apr 07 angel 2016 [#/volume on in 10:50 PM ] in source Amniotic data fluid Erythrocy 11.5 - % Normal Apr 07 te 17.5 2016 distribut on in 10:50 PM ion width source [Entitic data volume] by Automated count Leukocyte 4.8 - K/MM3 Normal Apr 07 s 10.8 2016 [#/volume on in 10:50 PM ] in source Blood data INR in Blood by Coagulation assay Observa Value Referen Units Interpr Notes Date tion ce etation Range IS PATIENT ON ANTICOAGULANTS? Y LIST ANTICOAGULANTS: ASPIRIN INR in 0.9 - 1.1 No Normal INDICATIO Apr 07 Blood by informati N 2017 Coagulati on in 10:50 PM on assay source INR data RANGETHER APY FOR DVT, PE, ATRIAL FIB; 2.0 - 3.0PROPHY LAXIS FOR VTETHERAP Y FOR MECHANICA L HEART 2.5 - 3.5VALVE; PREVENTIO N OF SYSTEMICE MBOLISM SECONDARY TO AMI Prothromb 9.4 - SECONDS Normal No Apr 07 in time 11.8 2016 (PT) in on in 10:50 PM Platelet source poor data plasma by Coagulati on assay Activated partial thrombplastin time (aPTT) in Platelet poor plasma by Coagulation assay Observa Value Referen Units Interpr Notes Date tion ce etation Range IS PATIENT ON ANTICOAGULANTS? Y LIST ANTICOAGULANTS: ASPIRIN Activated 23.6 - SECONDS Normal No Apr 07 partial 34.0 2016 thrombpla on in 10:50 PM stin time source (aPTT) data in Platelet poor plasma by Coagulati on assay LDL Observa Value Referen Units Interpr Notes Date tion ce etation Range FAX RESULTS 432-9002 Cholest 125.8 0.0 - No High OPTIMAL Dec 03 ladan in 100.0 informa - < 2014 LDL tion in 100 10:59 [Mass/v source MG/DLNE AM olume] data AR in OPTIMAL Serum / or ABOVE Plasma OPTIMAL by - < calcula 130 tion MG/DLBO RDERLIN E HIGH - 130-159 MG/DLHI GH - 160-189 MG/DLVE RY HIGH - > 189 MG/DL FREE THYROXINE Observa Value Referen Units Interpr Notes Date tion ce etation Range FAX RESULTS [phone] Thyroxi 0.82 0.76 - ng/dl No No Dec 03 ne (T4) 1.46 informa informa 2014 free tion in tion in 10:59 [Mass/v source source AM olume] data data in Serum or Plasma LIPID PROFILE Observa Value Referen Units Interpr Notes Date tion ce etation Range FAX RESULTS [phone] Triglyc 61 30 - MG/DL No NORMAL Dec 03 eride 200 informa <150 2013 [Mass/v tion in MG/DLBO 10:59 olume] source RDER AM in data HIGH Serum 150 - or 199 Plasma MG/DLHI GH >200 MG/DL Cholest 183 <200 MG/DL No No Dec 03 ladan informa informa 2014 [Mass/v tion in tion in 10:59 olume] source source AM in data data Serum or Plasma Cholest 45 32 - 60 MG/DL No No Dec 03 ladan in informa informa 2014 HDL tion in tion in 10:59 [Mass/v source source AM olume] data data in Serum or Plasma GLOMELULAR JEFF. RATE,CALC. Observa Value Referen Units Interpr Notes Date tion ce etation Range FAX RESULTS [phone] Glomeru 80.5 60.0 - ml/min No THE Dec 03 lar 130.0 informa eGFR IS 2013 filtrat tion in AN 10:59 ion source ESTIMAT AM rate/1. data ED 73 sq M GLOMELU LAR predict FILTRAT ed ION among RATEBAS non-winston ED ON cks by AN Creatin AVERAGE ine-bas BODY ed SURFACE formula AREA (MDRD) OF 1.73M2. THIS CALCULA TION IS NOT ACCURAT E FOR PEDIATR IC PATIENT S,PATIE NTS >70 YEARS OF AGE,OR PATIENT S WITH EXTREME BODY SIZE.>6 0 ML/MIN/ 1.73M2 = NORMAL< 60 ML/MIN/ 1.73M2 = CHRONIC KIDNEY DISEASE <15 ML/MIN/ 1.73M2 = KIDNEY FAILURE AVERAGE EGFR FOLLOWS :AGE(YE ARS) AVERAGE EGFR20- 39 116 ML/MIN3 0-39 107 ML/MIN4 0-49 99 ML/MIN5 0-59 93 ML/MIN6 0-69 85 ML/MIN TSH Observa Value Referen Units Interpr Notes Date tion ce etation Range FAX RESULTS [phone] Thyrotr 1.140 0.358 - uIU/ML No No Dec 03 opin 3.740 informa informa 2013 [Units/ tion in tion in 10:59 volume] source source AM in data data Serum or Plasma by Detecti on limit <= 0.005 mU/L COMP. METABOLIC PANEL (CHEM 12) Observa Value Referen Units Interpr Notes Date tion ce etation Range FAX RESULTS [phone] Glucose 81 70 - MG/DL No No Dec 03 110 informa informa 2013 [Mass/v tion in tion in 10:59 olume] source source AM in data data Serum or Plasma Urea 26 7 - 18 MG/DL High No Dec 03 nitroge informa 2014 n tion in 10:59 [Mass/v source AM olume] data in Serum or Plasma Sodium 140 133 - mmol/L No No Dec 03 [Moles/ 144 informa informa 2013 volume] tion in tion in 10:59 in source source AM Serum data data or Plasma Potassi 4.0 3.6 - mmol/l No No Dec 03 um 5.2 informa informa 2013 [Moles/ tion in tion in 10:59 volume] source source AM in data data Serum or Plasma Chlorid 108 98 - mmol/l High No Dec 03 e 107 informa 2013 [Moles/ tion in 10:59 volume] source AM in data Blood Carbon 28 21 - 32 mmol/L No No Dec 03 dioxide informa informa 2013 , total tion in tion in 10:59 source source AM [Moles/ data data volume] in Serum or Plasma Creatin 1.0 0.6 - MG/DL No No Dec 03 ine 1.3 informa informa 2013 [Mass/v tion in tion in 10:59 olume] source source AM in data data Serum or Plasma Protein 7.9 6.4 - G/DL No No Dec 03 8.4 informa informa 2013 [Mass/v tion in tion in 10:59 olume] source source AM in data data Serum or Plasma Albumin 3.8 3.4 - G/DL No No Dec 03 5.0 informa informa 2013 [Mass/v tion in tion in 10:59 olume] source source AM in data data Serum or Plasma Globuli 4.1 2.4 - G/DL No No Dec 03 n 4.8 informa informa 2013 [Mass/v tion in tion in 10:59 olume] source source AM in data data Plasma Albumin 0.9 0.6 - No No Dec 03 /Globul 1.6 informa informa informa 2013 in tion in tion in tion in 10:59 [Mass source source source AM ratio] data data data in Serum or Plasma Calcium 8.9 8.5 - MG/DL No No Dec 03 10.1 informa informa 2013 [Mass/v tion in tion in 10:59 olume] source source AM in data data Serum or Plasma Alkalin 82 45 - U/L No No Dec 03 e 117 informa informa 2013 phospha tion in tion in 10:59 tase source source AM [Enzyma data data tic activit y/volum e] in Serum or Plasma Asparta 39 15 - 37 U/L High No Dec 03 te informa 2013 aminotr tion in 10:59 ansfera source AM se data [Enzyma tic activit y/volum e] in Serum or Plasma Alanine 65 12 - 78 U/L No No Dec 03 informa informa 2014 aminotr tion in tion in 10:59 ansfera source source AM se data data [Enzyma tic activit y/volum e] in Serum or Plasma Bilirub 0.50 0.00 - MG/DL No No Dec 03 in.tota 1.00 informa informa 2013 l tion in tion in 10:59 [Mass/v source source AM olume] data data in Serum or Plasma PSA (SCREENING) Observa Value Referen Units Interpr Notes Date tion ce etation Range FAX RESULTS [phone] Prostat 0.5 0.0 - NG/ML No THE PSA Dec 03 e 4.0 informa ASSAY 2014 specifi tion in SHOULD 10:59 c Ag source NOT BE AM [Mass/v data USED olume] THE in ONLY Serum SCREENI or NG Plasma TOOLFOR THE EARLY DIAGNOS IS OF PROSTAT E CANCER. UNTREAT ED PATIENT SWITH PROSTAT E CANCER MAY HAVE SERUM LEVELS OF PSA WITHINN ORMAL RANGE. CONVERS LY, PATIENT S WITH NON-MAL IGNANT PROSTAT EDISEAS E MAY HAVE ABNORMA L SERUM LEVELS IN THE RANGE OBSERVE DFOR PATIENT S WITH PROSTAT E CANCER. THEREFO RE, PSA LEVELSS HOULD BE USED IN CONJUCT ION WITH INFORMA TION FROM [facility] TIONS AND RESULTS FROM ALTERNA TE PROCEDU RES. URINALYSIS COMPLETE Observa Value Referen Units Interpr Notes Date tion ce etation Range FAX RESULTS [phone] Color YELLOW No No No No Dec 03 of informa informa informa informa 2013 Urine tion in tion in tion in tion in 10:59 source source source source AM data data data data Clarity CLEAR No No No No Dec 03 of informa informa informa informa 2013 Urine tion in tion in tion in tion in 10:59 source source source source AM data data data data Glucose NEGATIV NEGATIV MG/DL No No Dec 03 E E informa informa 2013 [Presen tion in tion in 10:59 ce] in source source AM Urine data data by Automat ed test strip Bilirub NEGATIV NEGATIV No No No Dec 03 in E E informa informa informa 2013 [Presen tion in tion in tion in 10:59 ce] in source source source AM Urine data data data by Automat ed test strip Ketones NEGATIV NEGATIV MG/DL No No Dec 03 E E informa informa 2013 [Presen tion in tion in 10:59 ce] in source source AM Urine data data by Automat ed test strip Specifi 1.023 1.006 - No No No Dec 03 c 1.035 informa informa informa 2014 gravity tion in tion in tion in 10:59 of source source source AM Urine data data data by Automat ed test strip Erythro NEGATIV NEGATIV No No No Dec 03 cytes E E informa informa informa 2013 [Presen tion in tion in tion in 10:59 ce] in source source source AM Urine data data data by Automat ed pH of 6.5 5.0 - No No No Dec 03 Urine 9.0 informa informa informa 2013 by tion in tion in tion in 10:59 Automat source source source AM ed test data data data strip Protein NEGATIV NEGATIV MG/DL No No Dec 03 E E informa informa 2013 [Presen tion in tion in 10:59 ce] in source source AM Urine data data by Automat ed test strip UROBILI 0.2 0.2 - E.U./DL No No Dec 03 NOGEN 1.0 informa informa 2013 tion in tion in 10:59 source source AM data data Nitrate NEGATIV NEGATIV No No No Dec 03 E E informa informa informa 2013 [Presen tion in tion in tion in 10:59 ce] in source source source AM Urine data data data Leukocy NEGATIV NEGATIV No No No Dec 03 angel E E informa informa informa 2013 [Presen tion in tion in tion in 10:59 ce] in source source source AM Urine data data data by Automat ed Erythro 0 0 - 4 /HPF No No Dec 03 cytes informa informa 2013 [#/area tion in tion in 10:59 ] in source source AM Urine data data sedimen t by Microsc opy high power field WBC 1 0 - 5 /HPF No No Dec 03 COUNT informa informa 2013 tion in tion in 10:59 source source AM data data Epithel 1 0 - 6 /HPF No No Dec 03 ial informa informa 2014 cells tion in tion in 10:59 [Presen source source AM ce] in data data Urine sedimen t by Light microsc opy Bacteri NEGATIV NEGATIV /HPF No BACTERI Dec 03 a E E informa A 2013 [#/area tion in INTERPR 10:59 ] in source ETATION AM Urine data :NEGATI sedimen VE t by <=599/u Microsc lTRACE opy high >=600, power <=1199/ field ul1+ >=1200, <=2399/ ul2+ >=2400, <=3599/ ul3+ >=3600, <=4799/ ul4+ >=4800/ ul Hyaline 0 0 - 4 /LPF No No Dec 03 casts informa informa 2013 [#/area tion in tion in 10:59 ] in source source AM Urine data data sedimen t by Microsc opy high power field CBC/NO DIFF+ PLATELET Observa Value Referen Units Interpr Notes Date tion ce etation Range FAX RESULTS 432-9002 Leukocy 5.3 3.5 - K/UL No No Dec 03 angel 13.0 informa informa 2013 [#/volu tion in tion in 10:59 me] in source source AM Blood data data by Automat ed count Erythro 4.900 3.500 - M/ul No No Dec 03 cytes 6.100 informa informa 2013 [#/volu tion in tion in 10:59 me] in source source AM Blood data data by Automat ed count Hemoglo 15.2 11.0 - gm/dl No No Dec 03 bin 17.8 informa informa 2013 [Mass/v tion in tion in 10:59 olume] source source AM in data data Blood Hematoc 45.4 32.0 - % No No Dec 03 rit 51.6 informa informa 2013 [Volume tion in tion in 10:59 source source AM Fractio data data n] of Blood by Automat ed count Erythro 92.7 80.8 - fl No No Dec 03 cyte 101.2 informa informa 2013 mean tion in tion in 10:59 corpusc source source AM ular data data volume [Entiti c volume] by Automat ed count Erythro 31.0 27.6 - pg No No Dec 03 cyte 32.7 informa informa 2014 mean tion in tion in 10:59 corpusc source source AM ular data data hemoglo bin [Entiti c mass] by Automat ed count Erythro 33.5 32.6 - g/dl No No Dec 03 cyte 35.4 informa informa 2014 mean tion in tion in 10:59 corpusc source source AM ular data data hemoglo bin concent ration [Mass/v olume] by Automat ed count Erythro 14.5 10.1 - % No No Dec 03 cyte 16.5 informa informa 2014 distrib tion in tion in 10:59 ution source source AM width data data [Ratio] by Automat ed count Platele 229 134 - K/UL No No Dec 03 ts 412 informa informa 2014 [#/volu tion in tion in 10:59 me] in source source AM Blood data data by Automat ed count Platele 8.0 6.1 - fl No No Dec 03 t mean 10.1 informa informa 2014 volume tion in tion in 10:59 [Entiti source source AM c data data volume] in Blood by Automat ed count
--- OUTSIDE RECORDS SUMMARY | 2017-06-05 17:28 | External Medical Summary Rpt | CCD ---
Demographics Preferred Language Peruvian Marital Status Unknown Confucianism Affiliation Unknown Race Unknown Ethnic Group Unknown Author Author , CELINA KHANNA Address Unknown Phone Immunization Unable to retrieve immunization data due to connection failure with Immunization Registry. Please try again later.
--- OUTSIDE RECORDS SUMMARY | 2017-06-05 17:28 | External Medical Summary Rpt | CCD ---
Demographics Preferred Language Ivorian Marital Status Unknown Jew Affiliation Unknown Race Unknown Ethnic Group Unknown Author Author , CELINA KHANNA Address Unknown Phone Immunization Unable to retrieve immunization data due to connection failure with Immunization Registry. Please try again later.
--- OUTSIDE RECORDS SUMMARY | 2017-06-05 17:28 | External Medical Summary Rpt | CCD ---
Demographics Preferred Language Serbian Marital Status Unknown Islam Affiliation Unknown Race Unknown Ethnic Group Unknown Author Author JEY Address Unknown Phone [email or web address] Purpose Continuity of Care Document - through 2016
--- NOTE | 2017-06-05 17:48 | Urgent Treatment Center Report ---
History of Present Issue Date/Time Seen by Provider 06/05/17 6720 Visit Reason Pt arrived:Walked Presenting Problem:C/O RIGHT KNEE PAIN Location if Accident: Onset of symptoms date/time:/ or onset unknown for:MEDICAL HX UNKNOWN Have you (or family members/close friends) recently traveled outside the [place]? N If Yes, where/when: Have you had exposure to infectious disease within the past month? TB? Other? Specify: Patient state that he has been having right knee pain and swelling State that it has been coming and going for a short while now State that today he noticed that it looked like his knee was swollen again and painful when he walked State that he use to get fluid on that knee and not sure if it may have returned ALLERGIES Coded Allergies: No Known Allergies (06/29/16) Home Medications Reported Medications Aspirin (Aspirin Ec) 325 MG PO DAILY Gabapentin (Neurontin 300MG) 900 MG PO QHS Omeprazole (Omeprazole 20MG) 20 MG PO DAILY Lisinopril (Lisinopril 40MG) 40 MG PO BID #60 Metoprolol Tartrate (Lopressor 25MG Tab (1/2 Of 50 MG)) 50 MG PO DAILY #30 AMITRIPTYLINE HCL (Amitriptyline Hcl) 200 MG PO NIGHTLY #60 History Medical History General CAD? No Angina: No NM: No Hypertension? Yes Hyperlipidemia? No CHF? No DVT? No PE? No COPD? Yes Asthma? No Anemia? No GERD? No Gastric ulcers? No GI Bleed? No Hernia? No Thyroid Problems? No Hypothyroidism? No CVA? Yes Seizures? No Diabetes? No Renal Insuffiency? No UTI? No Stones? No BPH? No GB Disease: No Nephritic Syndrome? No Asplenia? No Hepatitis? No Sickle Cell Disease? No Arthritis? No Migraines? No Cataracts? No Glaucoma? No MRSA? No HIV? No TB? No Anxiety? No Depression? No Cancer? No Immunization HX DT/Tetanus 03/02/11 Surgical Hx Previous Surgery?Y BACK SURGERY X 2 Social History Smoking Hx Smoker: Current Every Day Smoker Tobacco: Yes Type Cigarettes Packs/day < 1 Pack Alcohol Alcohol: No Review of Systems All Other Systems Reviewed and Negative Comment Pain and swelling in right knee that has come and gone for several months denies temp difference in extremeties, denies numbness, denies swelling besides knee, denies loss of sensation Physical Exam Vital Signs Vital Signs Date Time Temp Pulse Resp B/P Pulse O2 O2 Flow FiO2 Ox Delivery Rate 06/05 1721 98.4 75 20 168/104 98 General Appearance normal appearance, WD/WN, no apparent distress Respiratory Status Yes: trachea midline, chest symmetrical, non tender chest. No: respiratory distress. Cardiovascular normal exam, regular rate/rhythm Extremities normal capillary refill, no calf tenderness, no pedal edema, swelling, No discoloration, no hematoma, no temperature difference, no difference between color of extremities, good cap refill Neurologic alert, normal exam, oriented x 3 Medical Decision Making LABS/Meds/Orders Pt receiving controlled substance in ED? No Results/Orders Orders Procedure Date/time Status KNEE-3 VIEWS-RT 06/05 1742 Active XRAY/CT/US XRAY/CT/US XRAY knee XR interpretation by reviewed by me Xray Results no fracture seen Comment Discussed with Dr Betancur will refer to Orthopedics Departure Departure Time of Disposition 1813 Disposition DC Home or Self Care(routine) Clinical Impression Primary Impression: Knee pain Qualifiers: Chronicity: unspecified Laterality: right Qualified Code: M25.561 - Pain in right knee Condition STABLE Referrals Mehrdad DC,Simon HAM MD, MILTON RÍOS Patient Instructions How To Perform RICE (Rest, Ice, Compress, Elevate) Additional Instructions *RICE, Rest the extremity, Ice 15-20 minutes 3-4 times daily, Compress- wear the pancho wrap as discussed as much as possible to help reduce swelling and pain, Elevate the extremity when at rest *Pancho wrap is for support and help control swelling, use it except in the shower. Be sure that is not to tight but not to loose either *Elevate when resting *Ibuprofen 600-800mg every 6-8 hours as needed for pain an inflammation. If need something more can take Tylenol in between doses of Ibuprofen to help Immediately follow up for new or worsening of symptoms, or no noticeable improvement over the next 3-5 days Discharge Counseling Counseled pt/family regarding diagnosis, test results, medications/RX, home care, follow up needs Prescriptions Current Visit Scripts Ibuprofen (Ibuprofen 800MG) 800 MG PO QIDP PRN pain #30 TAB at 2394
[2017-06-05] MEDS ORDERED: IBUPROFEN800 MG PO (18:19)
[2017-06-05 18:21] VITALS: BP 168/104
--- NOTE | 2017-06-05 23:32 | RADIOLOGY REPORT PS360 ---
KNEE-3 VIEWS-RT HISTORY: pain knee pain no injury. Patient Age: 66 years: Male Ordering Physician: EZRA THOMAS APRN TECHNIQUE: 3 views right knee COMPARISON : None FINDINGS No fracture nor dislocation. No significant joint effusion Borderline to mild narrowing of the medial and lateral compartment on this nonweightbearing film. Also slight sharpening the joint margins particularly medial and lateral lateral compartment joint margins. May reflect early degenerative changes as well Minor cortical undulation at the lateral aspect of distal femoral metaphysis is not felt to be significant. Most likely insertional point IMPRESSION: No fracture nor joint effusion. Suggestion of very early minor degenerative changes medial & lateral compartment.
== END 2017-06-05 18:40 | disposition home or self-care (01) ==
LOC: ER 17:04 → UTC 17:22
DX: M25.561 Pain in right knee (principal); Z79.82 Long term (current) use of aspirin; I10 Essential (primary) hypertension; J44.9 Chronic obstructive pulmonary disease, unspecified; F17.210 Nicotine dependence, cigarettes, uncomplicated; Z23 Encounter for immunization
CPT/HCPCS: Q2038